=== PATIENT | female | born 1940 | race Caucasian/White ===

== ENCOUNTER 2017-03-29 15:43 | Outpatient (CLI) ==
--- NOTE | 2017-03-29 16:19 | US ---
EXAM: Right lower extremity venous doppler. HISTORY: Right leg pain and swelling. COMPARISON: None available. TECHNIQUE: Multiple grayscale and color doppler images were obtained. FINDINGS: There is normal flow, compressibility and augmentation of flow within the right common fem oral, greater saphenous, profunda, femoral, popliteal, posterior tibial, anterior tibial and peroneal veins. IMPRESSION: No evidence for right lower extremity deep vein thrombosis at the levels examined.
== END 2017-03-29 15:44 | disposition home or self-care (01) ==
LOC: RAD 15:43
PROVIDERS: ATTEND Family Medicine
DX: R60.0 Localized edema (principal); M25.561 Pain in right knee